=== PATIENT | female | born 1985 | race Native Hawaiian/Other Pacific Islander ===

== ENCOUNTER 2022-01-04 06:16 | Emergency (ER) | payer OTHER ==
[~2022-01-04] VITALS: Ht 162.6 cm; Wt 99.8 kg
[2022-01-04 06:19] VITALS: TEMP 98.1
[2022-01-04 06:46] LABS: PLATELET COUNT 322 K/uL (152-353)
[2022-01-04 09:35] VITALS: BP 108/57
== END 2022-01-04 09:35 | disposition short-term general hospital (02) ==
LOC: ED 06:16
PROVIDERS: Hospitalist
DX: O69.0XX0 Labor and delivery complicated by prolapse of cord, not applicable or unspecified (principal); Z3A.16 16 weeks gestation of pregnancy; Z11.52 Encounter for screening for COVID-19
CPT/HCPCS: 36415; 80053; 80320; 84702; 85027; 85610; 85730; 87635; 96360; 96361; 96365; 96375; 96376; 99284; J2270; J2405; J2543; U0003

== ENCOUNTER 2022-06-19 17:44 | Emergency (ER) | payer OTHER ==
[~2022-06-19] VITALS: Ht 160 cm; Wt 86.2 kg
[2022-06-19 19:08] LABS: PLATELET COUNT 260 K/uL (152-353)
[2022-06-19 23:45] VITALS: BP 102/62; TEMP 97.6
== END 2022-06-19 23:50 | disposition home or self-care (01) ==
LOC: ED 17:44
PROVIDERS: Family Medicine
DX: N13.2 Hydronephrosis with renal and ureteral calculous obstruction (principal); Z87.442 Personal history of urinary calculi
CPT/HCPCS: 36415; 80053; 80307; 81000; 83605; 85027; 87077; 87086; 87088; 87186; 96360; 96365; 96375; 99284; J0696; J1885; J2270; J2405

== ENCOUNTER 2022-09-14 14:37 | Outpatient (CLI) | payer OTHER | END 2022-09-14 19:56 | disposition home or self-care (01) | LOC: RAD 14:37 | PROVIDERS: ATTEND Physician Assistant | DX: M25.572 Pain in left ankle and joints of left foot (principal) ==

== ENCOUNTER 2022-12-05 15:28 | Emergency (ER) | payer OTHER ==
[~2022-12-05] VITALS: Ht 160 cm; Wt 816.5 kg
[2022-12-05 15:30] VITALS: BP 123/83; TEMP 97.7
== END 2022-12-05 19:09 | disposition left against medical advice (07) ==
LOC: ED 15:28
DX: H50.89 Other specified strabismus (principal); Y04.2XXA Assault by strike against or bumped into by another person, initial encounter; Y92.89 Other specified places as the place of occurrence of the external cause
CPT/HCPCS: 81002; 81025; 99285

== ENCOUNTER 2022-12-21 09:40 | Outpatient (CLI) | payer OTHER | END 2022-12-21 19:16 | disposition home or self-care (01) | LOC: CT 09:40 | PROVIDERS: ATTEND Registered Nurse | DX: R91.1 Solitary pulmonary nodule (principal) | CPT/HCPCS: 81025; Q9963 ==